=== PATIENT | male | born 1960 | race Caucasian/White ===

== ENCOUNTER 2021-05-25 15:32 | Emergency (ER) | payer MEDICARE, SELFPAY ==
[2021-05-25 15:46] VITALS: BP 132/88; PULSE 88; RESP 19; TEMP 36.6; O2SAT 99; BMI 24.3
--- NOTE | 2021-05-25 16:23 | ED.ALCOHOL ---
HPI - Alcohol General Chief Complaint: ETOH/Substance Use <Shayla Ramirezsandeep LARISA - Last Filed: 05/25/21 22:34> Stated Complaint: etoh per ems, low blood sugar 51, glucose given <Shayla Ramirezsandeep LARISA - Last Filed: 05/25/21 22:34> Time Seen by Provider: 05/25/21 16:23 <Shayla Ramirezsandeep LARISA - Last Filed: 05/25/21 22:34> Source: patient <LARISA Lockett - Last Filed: 05/25/21 22:34> Mode of arrival: EMS <Shayla Ramirezsandeep LARISA - Last Filed: 05/25/21 22:34> Limitations: no limitations <LARISA Lockett - Last Filed: 05/25/21 22:34> History of Present Illness HPI narrative: 61-year-old male is brought by EMS , with ETOH on board in search of detox, with suicidal ideation. Patient is living in temporary housing in [place] [address]. Patient was saying that he is going to jump out of the window as he is tired of living like this. Patient is on 5 day all day alcohol binge. Patient is drinking vodka. Crisis team and police went to the seen. Patient has frog or oyster farmworker who is with him in the ER. Patient denies CP, PND, SOB with or without exertion, presyncope or syncope. Reports to have a epigastric discomfort and some nausea. <Shayla Helton LARISA - Last Filed: 05/25/21 22:34> MD complaint: alcohol intoxication <Shayla Gaston Helton LARISA - Last Filed: 05/25/21 22:34> Last drink: Hours (ago) <Shayla Helton LARISA - Last Filed: 05/25/21 22:34> Chronic alcohol use: Yes <Shaylaghulam Helton LARISA - Last Filed: 05/25/21 22:34> Associated symptoms: nausea and suicidality <Shayla Helton LARISA - Last Filed: 05/25/21 22:34> Related Data Home Medications: Home Medications Medication Instructions Recorded Confirmed amlodipine 10 mg tablet 1 tab PO QAM 05/25/21 05/25/21 buspirone 7.5 mg tablet 1 tab PO TID 05/25/21 05/25/21 diclofenac sodium 50 mg 1 tab PO BID 05/25/21 05/25/21 tablet,delayed release gabapentin 300 mg capsule 2 cap PO TID 05/25/21 05/25/21 hydrochlorothiazide 25 mg tablet 1 tab PO QAM 05/25/21 05/25/21 hydroxyzine HCl 50 mg tablet 1 tab PO BID PRN 05/25/21 05/25/21 melatonin 5 mg tablet 1 tab PO BEDTIME PRN 05/25/21 05/25/21 multivitamin with folic acid 400 1 tab PO DAILY 05/25/21 05/25/21 mcg tablet (Daily-Kathe (with folic acid)) <CLARIBEL Lockett-BC - Last Filed: 05/25/21 22:34> Allergies/Adverse Reactions: Allergies Allergy/AdvReac Type Severity Reaction Status Date / Time shellfish derived Allergy Severe HIVES Verified 05/25/21 22:52 Iodinated Contrast Media Allergy Unknown RASH Unverified 05/26/20 18:04 [IV CONTRAST] <CLARIBEL Lockett-APT - Last Filed: 05/25/21 22:34> Review of Systems Review of Systems: Constitutional : No Weight loss, No Fever, No Chills, No Night Sweats, No Fatigue, No Malaise ENT/Mouth : No Hearing loss, No Ear Pain, No Nasal Congestion, No Sinus Pain, No Hoarseness, No sore throat, No Rhinorrhea, No Swallowing Difficulty Eyes: No Eye Pain, No Swelling, No Redness, No Foreign Body, No Discharge, No Vision Changes Cardiovascular : No Chest Pain, No SOB, No Dyspnea on Exertion, No Orthopnea, No Edema, No Palpitations Respiratory : No Cough, No Sputum, No Wheezing, No Smoke Exposure, No Dyspnea Gastrointestinal : Nausea, No Vomiting, No Diarrhea, No Constipation, No abdominal Pain, No Hematochezia, No Melena Genitourinary : no irregular bleeding, No Dysuria, No Urinary Frequency, No Hematuria, No Urinary Incontinence, No Urgency, No Flank Pain, No Urinary Flow Changes, No Hesitancy Musculoskeletal : No joint pain, No Myalgias, No Joint Swelling Skin : No Skin Lesions, No rash Neuro : No Weakness, No Numbness, No Paresthesias, No Loss of Consciousness, No Dizziness, No Headache Psych : No Anxiety/Panic, No Depression, SI, No HI/AH/VH, No Social Issues, Heme/Lymph: No Bruising, No Bleeding,No Lymphadenopathy Endocrine : No Polyuria, No Polydipsia, No Temperature Intolerance <LARISA Lockett - Last Filed: 05/25/21 22:34> Yes all other systems are reviewed and are negative <LARISA Lockett - Last Filed: 05/25/21 22:34> [facility] Past Medical History Medical History: Medical History (Updated 05/25/21 @ 22:34 by LARISA Lockett) HTN (hypertension) <LARISA Lockett - Last Filed: 05/25/21 22:34> Social History Social History: Social History Alcohol intake: current Alcohol intake frequency: 3 or more drinks per day Patient Tobacco Use Status: Tobacco use Unknown Use of substances other than those prescribed or required for medical reasons: No Advance Directives: No Advance Directives Information Provided: Yes <LARISA Lockett - Last Filed: 05/25/21 22:34> Physical Exam Vital Signs: Vital Signs: Last Vital Signs Temp 98 F 05/25/21 22:36 Pulse 120 H 05/25/21 22:36 Resp 05/25/21 22:36 BP 130/91 H 05/25/21 22:36 Pulse Ox 96 05/25/21 22:36 Body Mass Index 24.3 <LARISA Lockett - Last Filed: 05/25/21 22:34> Vital Signs: Last Vital Signs Temp 98 F 05/25/21 22:36 Pulse 120 H 05/25/21 22:36 Resp 05/25/21 22:36 BP 130/91 H 05/25/21 22:36 Pulse Ox 96 05/25/21 22:36 Body Mass Index 24.3 <Harjeet Crowley MD - Last Filed: 05/25/21 23:09> Const: General: cooperative, healthy appearing, no acute distress and well developed <Shayla Helton EAR MACHINE OPERATOR-BC - Last Filed: 05/25/21 22:34> Nutritional Appearance: well nourished <Shayla Helton EAR MACHINE OPERATOR-BC - Last Filed: 05/25/21 22:34> Orientation/consciousness: patient oriented x3 <Shaylaavinash Helton EAR MACHINE OPERATOR-BC - Last Filed: 05/25/21 22:34> HENMT: Head: Yes normal to inspection, Yes normocephalic and Yes atraumatic <Shaylaavinash Helton EAR MACHINE OPERATOR-BC - Last Filed: 05/25/21 22:34> Neck: Neck: Yes normal visual inspection, Yes full ROM and Yes trachea midline <Shayla Gaston Helton EAR MACHINE OPERATOR-BC - Last Filed: 05/25/21 22:34> Thyroid: Thyroid normal <Shaylaavinash Helton EAR MACHINE OPERATOR-BC - Last Filed: 05/25/21 22:34> Resp: Auscultation: clear to auscultation bilaterally <Shayla Helton EAR MACHINE OPERATOR-BC - Last Filed: 05/25/21 22:34> Cardio: Rate: regular rate <Shayla Gaston Helton EAR MACHINE OPERATOR-BC - Last Filed: 05/25/21 22:34> Rhythm: regular rhythm <Shayla Gaston Helton EAR MACHINE OPERATOR-BC - Last Filed: 05/25/21 22:34> GI: Inspection: Yes normal to inspection and No distended <Shayla Hetlon EAR MACHINE OPERATOR-BC - Last Filed: 05/25/21 22:34> Palpation (GI): Soft to palpation, nontender, no guarding and No hepatosplenomegaly present <Shayla D Sunitha, EAR MACHINE OPERATOR-BC - Last Filed: 05/25/21 22:34> Auscultation: normal bowel sounds <Shayla Gaston Ramirezo, EAR MACHINE OPERATOR-BC - Last Filed: 05/25/21 22:34> Skin: General skin exam: elasticity normal, turgor normal and dry skin <Shayla Helton, EAR MACHINE OPERATOR-BC - Last Filed: 05/25/21 22:34> Neuro: General: patient oriented x3 <Shayla Gaston Ramirezo, EAR MACHINE OPERATOR-BC - Last Filed: 05/25/21 22:34> Course Course Course Narrative: ETOH, voicing that he wants to hurt himself. His frog or oyster farmworker called in, as well as please and crisis team. Patient wants detox. Will order labs, ETOH, salicylate, Tylenol level as well as tox screen. Patient is agreeable to this, patient is cooperative <LARISA Lockett - Last Filed: 05/25/21 22:34> Reevaluation(s) Reevaluation #1: Alcohol level 351 will wait for blood alcohol level to go down before speaking to crisis team, Pt cont to be cooperative and moved to POD. <LARISA Lockett - Last Filed: 05/25/21 22:34> Reevaluation #2: Report to Dr. Doshi <LARISA Lockett - Last Filed: 05/25/21 22:34> Time: 23:08 <Harjeet Crowley MD - Last Filed: 05/25/21 23:09> Reevaluation #3: The nurse reports that the patient is exhibiting withdrawal symptoms. The patient was ordered to get Ativan 2 mg orally. The patient was started on Ativan 1 mg every 4 hours as needed for withdrawal symptoms. The patient will be monitored with the CIWA scale. <Harjeet Crowley MD - Last Filed: 05/25/21 23:09> MDM - Alcohol Lab Data Labs: Lab Results 05/25/21 05/25/21 05/25/21 Range/Units 16:39 16:39 18:27 Salicylates < 5.0 L (15-30) mg/dL Urine Opiates Screen (Not Detect) Urine Fentanyl Screen (Not Detect) Acetaminophen < 1 (<30) mcg/mL Ur Barbiturates Screen (Not Detect) Ur Phencyclidine Scrn (Not Detect) Ur Amphetamines Screen (Not Detect) U Benzodiazepines Scrn (Not Detect) Urine Cocaine Screen (Not Detect) U Marijuana (THC) Screen (Not Detect) Ethyl Alcohol 351 H* mg/dL COVID-19 (MARK) Negative (Negative) COVID-19 Clin Com See Note 05/25/21 Range/Units 18:34 Salicylates (15-30) mg/dL Urine Opiates Screen Not Detected (Not Detect) Urine Fentanyl Screen Not Detected (Not Detect) Acetaminophen (<30) mcg/mL Ur Barbiturates Screen Not Detected (Not Detect) Ur Phencyclidine Scrn Not Detected (Not Detect) Ur Amphetamines Screen Not Detected (Not Detect) U Benzodiazepines Scrn Not Detected (Not Detect) Urine Cocaine Screen Not Detected (Not Detect) U Marijuana (THC) Screen Not Detected (Not Detect) Ethyl Alcohol mg/dL COVID-19 (MARK) (Negative) COVID-19 Clin Com <CLARIBEL Lockett-BC - Last Filed: 05/25/21 22:34> Lab Results 05/25/21 05/25/21 05/25/21 Range/Units 16:39 16:39 18:27 Salicylates < 5.0 L (15-30) mg/dL Urine Opiates Screen (Not Detect) Urine Fentanyl Screen (Not Detect) Acetaminophen < 1 (<30) mcg/mL Ur Barbiturates Screen (Not Detect) Ur Phencyclidine Scrn (Not Detect) Ur Amphetamines Screen (Not Detect) U Benzodiazepines Scrn (Not Detect) Urine Cocaine Screen (Not Detect) U Marijuana (THC) Screen (Not Detect) Ethyl Alcohol 351 H* mg/dL COVID-19 (MARK) Negative (Negative) COVID-19 Clin Com See Note 05/25/21 Range/Units 18:34 Salicylates (15-30) mg/dL Urine Opiates Screen Not Detected (Not Detect) Urine Fentanyl Screen Not Detected (Not Detect) Acetaminophen (<30) mcg/mL Ur Barbiturates Screen Not Detected (Not Detect) Ur Phencyclidine Scrn Not Detected (Not Detect) Ur Amphetamines Screen Not Detected (Not Detect) U Benzodiazepines Scrn Not Detected (Not Detect) Urine Cocaine Screen Not Detected (Not Detect) U Marijuana (THC) Screen Not Detected (Not Detect) Ethyl Alcohol mg/dL COVID-19 (MARK) (Negative) COVID-19 Clin Com <Harjeet Crowley MD - Last Filed: 05/25/21 23:09> Discharge Plan Discharge Clinical Impression: Desire for detoxification Alcoholic intoxication Qualifiers: Complication of substance-induced condition: uncomplicated Qualified Code(s): F10.920 - Alcohol use, unspecified with intoxication, uncomplicated <CLARIBEL Lockett-PAT - Last Filed: 05/25/21 22:34> Prescriptions: No Action hydroxyzine HCl 50 mg tablet 1 tab PO BID PRN (Reason: insomnia) RF: 0 amlodipine 10 mg tablet 1 tab PO QAM RF: 0 gabapentin 300 mg capsule 2 cap PO TID RF: 0 buspirone 7.5 mg tablet 1 tab PO TID RF: 0 hydrochlorothiazide 25 mg tablet 1 tab PO QAM RF: 0 diclofenac sodium 50 mg tablet,delayed release (DR/EC) 1 tab PO BID RF: 0 melatonin 5 mg tablet 1 tab PO BEDTIME PRN (Reason: insomnia) RF: 0 multivitamin with folic acid [Daily-Kathe (with folic acid)] 400 mcg tablet 1 tab PO DAILY RF: 0 CLARIBEL Restrepo-BC - Last Filed: 05/25/21 22:34>
--- NOTE | 2021-05-25 16:48 | PC.NURSE ---
Pt BIBA after being found outside unable to ambulate due to reported intoxication. upon arrival, pt is CAOx4, has noted slurred speech and admits to drinking a large amount of alcohol today. Pt stated he has been feeling depressed and gave vague suicidal statements. Labs drawn. Pt changed and pt has aquatics group fitness instructor at the bedside. Pt is able ambulate with a steady gait at this time. Pt will get a behavioral health consult.
[2021-05-25 16:56] LABS: Ethanol 351 mg/dL
[2021-05-25 16:58] LABS: Acetaminophen LAB < 1 mcg/mL (<30); Salicylate < 5.0 mg/dL (15-30)
--- NOTE | 2021-05-25 17:15 | PC.NURSE ---
REPORT TO AHSAN RN IN POD. N CONSULT SENT
[2021-05-25 19:15] LABS: COVID-19 Test Negative (Negative); IDNOW Serial# 9DD0AD1C
[2021-05-25 19:20] LABS: Amphetamine Screen Urine Not Detected (Not Detect); Barbiturates, Urine Not Detected (Not Detect); Benzodiazepines Screen Urine Not Detected (Not Detect); Cannabinoid Screen Urine Not Detected (Not Detect); Cocaine Screen Urine Not Detected (Not Detect); Fentanyl, urine Not Detected (Not Detect); Opiate Screen Urine Not Detected (Not Detect); Phencyclidine Screen Urine Not Detected (Not Detect)
[2021-05-25 22:36] VITALS: BP 130/91; PULSE 120; RESP 20; TEMP 36.6; O2SAT 96
[2021-05-25] MEDS: busPIRone HCl 5 MG TABLET 7.5 MG PO (22:37)
[2021-05-25] MEDS: Melatonin 3 MG TABLET PO (22:38)
[2021-05-25] MEDS: hydrOXYzine HCL 50 MG TABLET PO (22:38)
[2021-05-25] MEDS: Gabapentin 300 MG CAPSULE 600 MG PO (22:38)
[2021-05-25] MEDS: LORazepam 1 MG TABLET 2 MG PO (23:08)
--- NOTE | 2021-05-25 23:11 | PC.NURSE ---
Patient scored 16 on CIWA scale, provider notified/ordered Ativan 2 mg stat/administered as ordered. Patient was compliant with his nighttime medication, BHN referral completed, patient will be seen after 2 am if clinician is available, will continue to monitor.
[2021-05-25 23:47] VITALS: BP 100/54; PULSE 76; RESP 16; TEMP 36.8; O2SAT 96
[2021-05-26] MEDS: LORazepam 1 MG TABLET PO ×2 (04:49→08:58)
--- NOTE | 2021-05-26 06:16 | PC.NURSE ---
Patient slept through the night, no distress observed/reported, asymptomatic of ETOH withdrawal at this time, received Ativan 1 mg at 0449 when patient was out of room for bathroom use, behavior appropriate, appetite adequate, patient is waiting to be seen by the N, [facility].
--- NOTE | 2021-05-26 07:13 | PC.NURSE ---
patient appears to remain asleep at present with even unlabored breaths patient appears in no distress.
[2021-05-26 08:06] VITALS: BP 100/54; PULSE 76
[2021-05-26] MEDS: Multivitamin TABLET 1 TAB PO (08:06)
[2021-05-26] MEDS: busPIRone HCl 5 MG TABLET 7.5 MG PO (08:06)
[2021-05-26] MEDS: Gabapentin 300 MG CAPSULE 600 MG PO (08:06)
[2021-05-26] MEDS: hydroCHLOROthiazide 25 MG TABLET PO (08:06)
[2021-05-26] MEDS: amLODIPine Besylate 10 MG TABLET PO (08:06)
--- NOTE | 2021-05-26 09:42 | MHC.CARE ---
0730 ? Pt is a 61-year-old male who is brought by EMS, after consuming alcoholic beverage to the point of intoxication.? He reports upon arrival that he is seeking detox.? Patient is living in [place] [address].? Patient said upon arrival that he is going to jump out of the window as he is tired of living like he is presently.? Patient was on a 5 day alcohol binge, consuming vodka all day every day.? Pt was found outside, unable to ambulate, due to the level of intoxication. Juan Carlosby contacted EMS and he was transported to this facility. Pt is assessed in his room; he is alert and oriented x4 and is engaged in the assessment.? Pt stated that he has been binge drinking for ?4-5 days?.? Initially, he cannot effectively answer why but later stated that he was upset with his sister.? Pt stated that he has no desire to harm himself, stating that he has ?So much to live for? explaining that he has 2 grandchildren, a son, and a sister.? He is able to verbally contract for safety, stating that he would return should he not feel safe.? He is help seeking and interested in resources.? At present, he has no day structure in place and no community supports with the exception of a [employer] that is working with him to secure housing. CARE Team will refer pt to the Recovery team for recovery resources.? A referral will be submitted to ?[facility] to secure as therapist and, if needed, a psychiatrist.? Pt will also be referred to the Partial Hospitalization Program. Plan is for pt to be discharged home with referrals as he does not meet the criteria for inpatient level of care.? This disposition is discussed with and agreed upon by ED provider Mathew Montalvo, CARE patient scheduling coordinator Magda Nice [facility], and pt?s nurse RN Kaylyn Cedeno.?
--- NOTE | 2021-05-26 10:00 | MHC.RECOVRN ---
T/w met with pt after request from the CARE Team. Pt familiar with t/w from previous encounters. Pt initially came to [facility] seeking ATS, however, pt states I'm okay, I just want to get going with my day. I don't need detox. I want to go for a bike ride. Pt reports alcohol use, 1 pint daily x 3-5 days. Prior to this, pt reports a period of recovery approx 1 year. Pt currently staying at [place] [address] through [facility]. Pt has recovery supports including connections through AA, sister, son, and social workers at [facility]. Pt reports currently taking naltrexone for AUD, prescribed by PCP. Pt reports motivation to return to recovery and is aware of supports available if needed, declines referrals from t/w. Pt given t/w contact information if questions or concerns arise. Discussed with CARE Team.
== END 2021-05-26 12:09 | disposition home or self-care (01) ==
PROVIDERS: Nurse Practitioner Family; Emergency Provider Emergency Medicine Emergency Medical Services
DX: F10.129 Alcohol abuse with intoxication, unspecified (principal); Y90.8 Blood alcohol level of 240 mg/100 ml or more; R10.13 Epigastric pain; R11.0 Nausea; Z20.822 Contact with and (suspected) exposure to COVID-19; Z79.899 Other long term (current) drug therapy; Z71.41 Alcohol abuse counseling and surveillance of alcoholic
CPT/HCPCS: 36415; 80143; 80179; 80307; 82077; 87635; 99284; 99285

== ENCOUNTER 2021-06-23 12:29 | Emergency (ER) | payer MEDICARE, SELFPAY ==
--- NOTE | 2021-06-23 12:50 | ED_ITS ---
HPI - Alcohol General Chief Complaint: ETOH/Substance Use Stated Complaint: ETOH Time Seen by Provider: 06/23/21 12:46 History of Present Illness HPI narrative: Patient is 61 years old with a history of ETOH abuse. Stop drinking been sober for few years. However patient over the last few weeks started drinking again. Now wants to stop drinking alcohol. Patient denies any suicidal homicidal ideation. Just pain finished drinking prior to arrival in the emergency department. Patient wants detox. Related Data Home Medications Medication Instructions Recorded Confirmed amlodipine 10 mg tablet 1 tab PO QAM 05/25/21 06/23/21 buspirone 7.5 mg tablet 1 tab PO TID 05/25/21 06/23/21 gabapentin 300 mg capsule 2 cap PO TID 05/25/21 06/23/21 hydrochlorothiazide 25 mg tablet 1 tab PO QAM 05/25/21 06/23/21 hydroxyzine HCl 50 mg tablet 1 tab PO BID PRN 05/25/21 06/23/21 melatonin 5 mg tablet 1 tab PO BEDTIME PRN 05/25/21 06/23/21 multivitamin with folic acid 400 1 tab PO DAILY 05/25/21 06/23/21 mcg tablet (Daily-Kathe (with folic acid)) duloxetine 60 mg capsule,delayed 1 cap PO DAILY 06/23/21 06/23/21 release nystatin 100,000 unit/gram topical 1 applic TOPICAL BID-TID 06/23/21 06/23/21 powder omega-3 fatty acids-fish oil 300 1 cap PO TID 06/23/21 06/23/21 mg-1,000 mg capsule propranolol 40 mg tablet 1 tab PO BID 06/23/21 06/23/21 Allergies Allergy/AdvReac Type Severity Reaction Status Date / Time shellfish derived Allergy Severe HIVES Verified 05/25/21 22:52 Iodinated Contrast Media Allergy Unknown RASH Unverified 05/26/20 18:04 [IV CONTRAST] Review of Systems Review of Systems: No fever no chills no cough no congestion No diaphoresis All systems reviewed otherwise negative Yes all other systems are reviewed and are negative [facility] Past Medical History Attestation statement: The following information was validated with the patient. Medical History HTN (hypertension) Social History Social History Alcohol intake: current Alcohol intake frequency: 3 or more drinks per day Patient Tobacco Use Status: Tobacco use Unknown Advance Directives: No Advance Directives Information Provided: Yes Physical Exam Vital Signs: Vital Signs: Last Vital Signs Temp 99 F 06/23/21 19:19 Pulse 94 06/23/21 19:19 Resp 20 06/23/21 19:19 BP 126/85 06/23/21 19:19 Pulse Ox 97 06/23/21 19:19 Body Mass Index 21.5 Appearance: Alert. Oriented X3. No acute distress. Eyes: Pupils equal, round and reactive to light. ENT: Pharynx normal. Neck: Normal inspection. Neck supple. No lymph nodes noted. No crepitus CVS: Normal heart rate and rhythm. Pulses normal. Normal S1 and S2 Respiratory: No respiratory distress. Breath sounds normal. No Wheezing. No ra les Abdomen: Soft and nontender. No rigidity. No distention. good BS x4 Skin: Skin warm and dry. Normal skin color. Normal skin turgor. Extremities: No lower extremity edema. Neurovascular intact to all extremities. No Lacerations. No Rash Neuro: Oriented X 3. No motor deficit. No sensory deficit. Moving all extermities. No slurred speech. Cranial nerves grossly intact MDM - Alcohol MDM Narrative Medical decision making narrative: Patient ETOH in the 200 range. Awaiting clinical sobriety. Care team involved in placing patient in detox. In stable condition. Lab Data Result diagrams: 06/23/21 13:38 06/23/21 13:38 Labs: Lab Results 06/23/21 06/23/21 06/23/21 Range/Units 12:57 12:57 13:38 WBC 6.2 (4.8-10.8) X10*3/uL RBC 4.66 (4.60-5.80) X10*6/uL Hgb 16.0 (14.0-18.0) g/dl Hct 45.3 (42-52) % MCV 97.2 (80-98) fL MCH 34.3 H (27.0-33.0) pg MCHC 35.3 (31.0-36.0) g/dl RDW 14.2 (11.0-16.0) % Plt Count 214 (160-400) X10*3/uL MPV 8.9 L (9.4-12.4) fL Immature Gran % (Auto) 0.2 (0.0-0.4) % Neut % (Auto) 67.9 (45-73) % Lymph % (Auto) 21.6 (20-40) % Ray % (Auto) 8.1 (2-11) % Eos % (Auto) 1.6 (0-4) % Baso % (Auto) 0.6 (0-2) % Lymph # (Auto) 1.3 (1.2-4.9) X10*3/uL Ray # (Auto) 0.5 (0.1-1.2) X10*3/uL Eos # (Auto) 0.1 (0.0-0.4) X10*3/uL Baso # (Auto) 0.0 (0.0-0.2) X10*3/uL Abs Immat Gran (auto) 0.01 (0.00-0.03) X10*3/uL Absolute Neuts (auto) 4.2 (2.0-8.3) X10*3/uL Absolute Nucleated RBC 0.000 (0.0-0.012) X10*3/uL Nucleated RBC % (auto) 0.0 (0.0-0.2) /100WBC Sodium (135-145) mmol/L Potassium (3.3-5.1) mmol/L Chloride (96-108) mmol/L Carbon Dioxide (22-29) mmol/L Anion Gap (12-20) BUN (9-16) mg/dL Creatinine (0.5-1.4) mg/dL Estim Creat Clear Calc Estimated GFR Random Glucose (60-115) mg/dL Calcium (8.4-10.2) mg/dL Urine Opiates Screen Not Detected (Not Detect) Urine Fentanyl Screen Not Detected (Not Detect) Ur Barbiturates Screen Not Detected (Not Detect) Ur Phencyclidine Scrn Not Detected (Not Detect) Ur Amphetamines Screen Not Detected (Not Detect) U Benzodiazepines Scrn Not Detected (Not Detect) Urine Cocaine Screen Not Detected (Not Detect) U Marijuana (THC) Screen Not Detected (Not Detect) Ethyl Alcohol mg/dL COVID-19 (MARK) Negative (Negative) COVID-19 Clin Com See Note 06/23/21 06/23/21 Range/Units 13:38 13:38 WBC (4.8-10.8) X10*3/uL RBC (4.60-5.80) X10*6/uL Hgb (14.0-18.0) g/dl Hct (42-52) % MCV (80-98) fL MCH (27.0-33.0) pg MCHC (31.0-36.0) g/dl RDW (11.0-16.0) % Plt Count (160-400) X10*3/uL MPV (9.4-12.4) fL Immature Gran % (Auto) (0.0-0.4) % Neut % (Auto) (45-73) % Lymph % (Auto) (20-40) % Ray % (Auto) (2-11) % Eos % (Auto) (0-4) % Baso % (Auto) (0-2) % Lymph # (Auto) (1.2-4.9) X10*3/uL Ray # (Auto) (0.1-1.2) X10*3/uL Eos # (Auto) (0.0-0.4) X10*3/uL Baso # (Auto) (0.0-0.2) X10*3/uL Abs Immat Gran (auto) (0.00-0.03) X10*3/uL Absolute Neuts (auto) (2.0-8.3) X10*3/uL Absolute Nucleated RBC (0.0-0.012) X10*3/uL Nucleated RBC % (auto) (0.0-0.2) /100WBC Sodium 140 (135-145) mmol/L Potassium 3.8 (3.3-5.1) mmol/L Chloride 101 (96-108) mmol/L Carbon Dioxide 26 (22-29) mmol/L Anion Gap 17 (12-20) BUN 9 (9-16) mg/dL Creatinine 0.92 (0.5-1.4) mg/dL Estim Creat Clear Calc 80.1 Estimated GFR > 60 Random Glucose 162 H (60-115) mg/dL Calcium 9.3 (8.4-10.2) mg/dL Urine Opiates Screen (Not Detect) Urine Fentanyl Screen (Not Detect) Ur Barbiturates Screen (Not Detect) Ur Phencyclidine Scrn (Not Detect) Ur Amphetamines Screen (Not Detect) U Benzodiazepines Scrn (Not Detect) Urine Cocaine Screen (Not Detect) U Marijuana (THC) Screen (Not Detect) Ethyl Alcohol 285 mg/dL COVID-19 (MARK) (Negative) COVID-19 Clin Com Discharge Plan Discharge Clinical Impression: Alcoholic intoxication Patient Disposition: Home, Self-Care Instructions: Alcohol Intoxication (ED) Prescriptions: No Action hydroxyzine HCl 50 mg tablet 1 tab PO BID PRN (Reason: insomnia) RF: 0 amlodipine 10 mg tablet 1 tab PO QAM RF: 0 gabapentin 300 mg capsule 2 cap PO TID RF: 0 buspirone 7.5 mg tablet 1 tab PO TID RF: 0 hydrochlorothiazide 25 mg tablet 1 tab PO QAM RF: 0 melatonin 5 mg tablet 1 tab PO BEDTIME PRN (Reason: insomnia) RF: 0 multivitamin with folic acid [Daily-Kathe (with folic acid)] 400 mcg tablet 1 tab PO DAILY RF: 0 nystatin 100,000 unit/gram powder 1 applic topical BID-TID RF: 0 duloxetine 60 mg capsule,delayed release(DR/EC) 1 cap PO DAILY RF: 0 omega-3 fatty acids-fish oil 300-1,000 mg capsule 1 cap PO TID RF: 0 propranolol 40 mg tablet 1 tab PO BID RF: 0 Referrals: Physician,Unknown J [Primary Care Provider] - 2 days (Please go to detox. Please stop drinking alcohol.)
[2021-06-23 13:13] VITALS: BP 132/76; BP 146/98; PULSE 75; PULSE 91; RESP 17; TEMP 37.4; O2SAT 96; O2SAT 98; BMI 21.5
[2021-06-23 13:34] LABS: Amphetamine Screen Urine Not Detected (Not Detect); Barbiturates, Urine Not Detected (Not Detect); Benzodiazepines Screen Urine Not Detected (Not Detect); COVID-19 Test Negative (Negative); Cannabinoid Screen Urine Not Detected (Not Detect); Cocaine Screen Urine Not Detected (Not Detect); Fentanyl, urine Not Detected (Not Detect); Opiate Screen Urine Not Detected (Not Detect); Phencyclidine Screen Urine Not Detected (Not Detect)
[2021-06-23 13:49] LABS: MANUAL DIFF FLAG NO
[2021-06-23 13:50] LABS: Basophils Percent Auto 0.6 % (0-2); Eosinophils Absolute Auto 0.1 X10*3/uL (0.0-0.4); Eosinophils Percent Auto 1.6 % (0-4); Hematocrit 45.3 % (42-52); Imm Gran Abs Auto 0.01 X10*3/uL (0.00-0.03); Imm Gran Pct Auto 0.2 % (0.0-0.4); Lymphocytes Absolute Auto 1.3 X10*3/uL (1.2-4.9); Lymphocytes Percent Auto 21.6 % (20-40); Mean Corpuscular HGB Conc 35.3 g/dl (31.0-36.0); Mean Corpuscular Hemoglobin 34.3 pg (27.0-33.0); Mean Corpuscular Volume 97.2 fL (80-98); Mean Platelet Volume 8.9 fL (9.4-12.4); Monocytes Absolute Auto 0.5 X10*3/uL (0.1-1.2); Monocytes Percent Auto 8.1 % (2-11); Neutrophils Absolute Auto 4.2 X10*3/uL (2.0-8.3); Neutrophils Percent Auto 67.9 % (45-73); Platelet Count 214 X10*3/uL (160-400); Red Blood Count 4.66 X10*6/uL (4.60-5.80); Red Cell Distribution Width 14.2 % (11.0-16.0); White Blood Count 6.2 X10*3/uL (4.8-10.8)
--- NOTE | 2021-06-23 13:54 | PC.NURSE ---
pt is on the phone with [facility]. pt was seen earlier by ondina (chief engineer drilling and recovery), pt aware of plan of care
[2021-06-23 14:06] LABS: Anion Gap 17 (12-20); Blood Urea Nitrogen 9 mg/dL (9-16); Calcium 9.3 mg/dL (8.4-10.2); Carbon Dioxide 26 mmol/L (22-29); Chloride 101 mmol/L (96-108); Creatinine Clr Calc Pharmacy 80.1; Estimated Glomerular Filt Rate > 60; Glucose Random 162 mg/dL (60-115); Potassium 3.8 mmol/L (3.3-5.1); Sodium 140 mmol/L (135-145)
[2021-06-23 14:13] LABS: Ethanol 285 mg/dL
[2021-06-23] MEDS: LORazepam 1 MG TABLET PO ×3 (14:16→19:19)
--- NOTE | 2021-06-23 15:31 | PHA.MEDREC ---
Pharmacy Consult ? Medication Reconciliation Pharmacy has completed the medication reconciliation. Jacklyn MaxwellD
[2021-06-23 16:47] VITALS: BP 140/100; PULSE 93; RESP 16; TEMP 36.8; O2SAT 96
--- NOTE | 2021-06-23 17:56 | MHC.RECOVSUP ---
? Reason for consult:Seeking Detox o?? Current location ?)^ o?? Identified substance use concern ?Alcohol ?? Seeking ATS (detox) ? Intervention: o?? ATS bed search started/completed/in process o?? Community resources provided o?? Harm reduction discussion ? Plan: o?? Bed search in progress to o?? Follow up tomorrow? o?? Patient awaiting crisis evaluation o?? Patient to follow up with [facility] after discharge ? Additional information: ?Spoke with Pt. About different detoxes Pt. stated that he did a intake with [facility] .Wants to go there not interested in going to any other detox.Gave Pt. information about [facility].
[2021-06-23 19:19] VITALS: BP 126/85; PULSE 94; RESP 20; TEMP 37.2; O2SAT 97
[2021-06-23 21:57] VITALS: BP 147/92; PULSE 93; RESP 20; O2SAT 95
[2021-06-23] MEDS: chlordiazePOXIDE HCl 25 MG CAPSULE 50 MG PO (23:42)
[2021-06-24 00:29] VITALS: BP 141/89; PULSE 93; RESP 18; TEMP 36.9; O2SAT 98
--- NOTE | 2021-06-24 00:33 | PC.NURSE ---
pt came to the desk forehead moist, poc being checked, vitals stable. librium given. pt encouraged to eat, pt has not eaten since his arrival states he will when he has had enough ativan. poc 84.
[2021-06-24 00:40] LABS: Glucose, Whole Blood 84 mg/dL (60-115)
[2021-06-24 01:11] VITALS: BP 141/89; PULSE 93
[2021-06-24] MEDS: amLODIPine Besylate 10 MG TABLET PO (01:11)
[2021-06-24] MEDS: busPIRone HCl 5 MG TABLET 7.5 MG PO (01:12)
[2021-06-24] MEDS: Gabapentin 300 MG CAPSULE 600 MG PO (01:12)
--- NOTE | 2021-06-24 01:32 | PC.NURSE ---
property management supervisor called for inderal med not avalable in the pyxis
[2021-06-24 01:53] VITALS: BP 141/89; PULSE 93
[2021-06-24] MEDS: Propranolol HCL 40 MG TABLET PO (01:53)
--- NOTE | 2021-06-24 02:48 | PC.NURSE ---
pt sleeping visable on the monitor. no s/s of distress noted.
--- NOTE | 2021-06-24 06:13 | PC.NURSE ---
pt states he doesnt feel right, hands tremors visably seen, vitals taken hr 69, bp 135/87/103
[2021-06-24 06:15] VITALS: BP 135/87; PULSE 69; RESP 18; TEMP 37.2; O2SAT 97
== END 2021-06-24 06:55 | disposition home or self-care (01) ==
PROVIDERS: Emergency Provider Emergency Medicine Emergency Medical Services
DX: F10.129 Alcohol abuse with intoxication, unspecified (principal); Y90.8 Blood alcohol level of 240 mg/100 ml or more; Z20.822 Contact with and (suspected) exposure to COVID-19; Z79.899 Other long term (current) drug therapy
CPT/HCPCS: 36415; 80048; 80307; 82077; 82947; 85025; 87635; 99285